=== PATIENT | male | born 1975 | race Caucasian/White ===

== ENCOUNTER 2018-10-15 20:00 | Emergency (ER) | payer MEDICAID ==
[~2018-10-15] VITALS: Ht 170.2 cm; Wt 109.8 kg
[2018-10-15 20:21] VITALS: Ht 170.2 cm; Wt 109.8 kg
[2018-10-15 22:29] VITALS: BP 126/76
== END 2018-10-15 22:29 | disposition home or self-care (01) ==
LOC: ED 20:00
DX: S29.9XXA Unspecified injury of thorax, initial encounter (principal); W22.8XXA Striking against or struck by other objects, initial encounter; Y93.89 Activity, other specified; Y92.89 Other specified places as the place of occurrence of the external cause; Y99.8 Other external cause status
CPT/HCPCS: J1885

== ENCOUNTER 2019-01-31 17:21 | Inpatient (IN) | payer MEDICAID ==
[~2019-01-31] VITALS: Ht 170.2 cm; Wt 108.2 kg
--- NOTE | 2019-01-31 18:23 | NUR ---
WOUND CULTURE COLLECTED AND SENT TO LAB.
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
[2019-01-31 19:29] LABS: BASOPHIL % 0.4 % (0-2); PLATELET COUNT 232 x10^3mcL (130-400); RED CELL DISTRIBUTION WIDTH 12.8 % (11.5-14.5)
[2019-01-31 19:39] LABS: CALCIUM 8.5 mg/dL (8.5-10.1); CARBON DIOXIDE 27.7 mmol/L (21-32); CHLORIDE SERUM 104 mmol/L (98-107); GFR1 > 60 mL/min; GLUCOSE SERUM 142 mg/dL (74-106); POTASSIUM SERUM 4.4 mmol/L (3.5-5.1); SODIUM SERUM 138 mmol/L (136-145)
--- NOTE | 2019-01-31 19:40 | NUR ---
PT TAKEN TO CT
[2019-01-31 19:43] LABS: ALKALINE PHOSPHATASE 87 U/L (46-116); ALT/SGPT 91 U/L (16-63); AST/SGOT 41 U/L (15-37); BILIRUBIN TOTAL 0.3 mg/dL (0.20-1.00); MAGNESIUM 2.1 mg/dL (1.8-2.4); TOTAL PROTEIN, SERUM 7.5 g/dL (6.4-8.2)
[2019-01-31 19:44] LABS: ALBUMIN 3.1 g/dL (3.4-5.0)
--- NOTE | 2019-01-31 20:24 | NUR ---
PT MEDICATED PER ORDER. PT VERBALIZED UNDERSTANDING OF MEDICATION TEACHING. SEE EMAR FOR DETAILS.
--- NOTE | 2019-01-31 21:31 | NUR ---
PT SLEEPING ON GURNEY IN POSITION OF COMFORT. NO S/S OF DISTRESS. RESP E/U. MOTHER AT BEDSIDE. PT EASILY ARROUSEABLE. PT ASKED FOR WATER. WILL CONTINUE TO MONITOR.
--- NOTE | 2019-01-31 21:41 | NUR ---
REPORT TO SMITH TORRES TO [facility].
--- NOTE | 2019-01-31 21:57 | NUR ---
RECEIVED PT FROM ED VIA ROZ, CAME IN DUE TO LLE PAIN AND FOUL ODOR IN THE WOUND. AAOX4. C/O 9/10 POUNDING HEADACHE. ABLE TO FOLLOW COMMANDS. NO SOB NOTED, LUNG SOUNDS CTA. DENIES CHEST PAIN/PRESSURE. DENIES ABDOMINAL PAIN/NAUSEA/VOMITING. STATED THAT HE HAD DIARRHEAL EPISODES 2-3 DAYS BUT HAD FORMED BM TODAY. VOIDS. W/ DRESSINGS ON THE LEFT UPPER ANTERIOR AND POSTERIOR THIGH, CDI. FOUL ODOR NOTED. PT STATED THAT THE DRESSINGS WERE JUST CHANGED IN ED AND REFUSES FOR THE DRESSING TO BE CHANGED FOR ASSESSMENT. LLE ELEVATED W/ A PILLOW. C/O 10/10 SHARP LLE PAIN AND HAS LIMITED ROM ON LLE. IV SITE ON THE RAC GAUGE 20, RECEIVED PT FROM ED W/ NS ONGOING. SIDE RAILS UPX2. CALL LIGHT ON REACH. LRDF=675.7, COOLING MEASURES INITIATED. ENDORSED TO PRIMARY NURSE MELISSA FOR CONTINUITY OF CARE
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
--- NOTE | 2019-01-31 22:30 | NUR ---
TEMP 101.7 DR DAO AWARE , TYLENOL 250MG GIVEN PO .
[2019-01-31 22:31] VITALS: BP 167/89
[2019-01-31 22:34] VITALS: Ht 170.2 cm; Wt 108.2 kg
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
[2019-02-01 00:34] LABS: microscopic required? NO
[2019-02-01 00:51] LABS: urine erythrocyte NEGATIVE (NEGATIVE)
[2019-02-01 01:01] LABS: AMPHETAMINE QUAL UR POSITIVE (See below)
--- NOTE | 2019-02-01 01:51 | NUR ---
PT C/O PAIN 09/27 NORCO GIVEN .
--- NOTE | 2019-02-01 02:56 | NUR ---
PT'S IN BED WITH EYES CLOSED , PIV INTACT INFUSING WELL .
--- NOTE | 2019-02-01 04:53 | NUR ---
I HAVE REVIEWED THE DATA COLLECTION BY TRACTOR OPERATOR (NAME):MELISSA ZAVALA ENTERED ON (DATE/TIME): I CONCUR WITH THE DATA AND ANY EXCEPTIONS OR COMMENTS ARE LISTED BELOW:
[2019-02-01 05:30] VITALS: BP 125/59
--- NOTE | 2019-02-01 06:03 | NUR ---
PT C/O CHU 11/27 MILBANK GIVEN
[2019-02-01 06:12] LABS: BASOPHIL % 0.5 % (0-2); PLATELET COUNT 240 x10^3mcL (130-400); RED CELL DISTRIBUTION WIDTH 12.5 % (11.5-14.5)
[2019-02-01 06:25] LABS: CALCIUM 8.1 mg/dL (8.5-10.1); CARBON DIOXIDE 27.8 mmol/L (21-32); CHLORIDE SERUM 105 mmol/L (98-107); CREATININE SERUM 0.8 mg/dL (0.7-1.3); GFR1 > 60 mL/min; GLUCOSE SERUM 113 mg/dL (74-106); PHOSPHOROUS 3.1 mg/dL (2.5-4.9); POTASSIUM SERUM 4.3 mmol/L (3.5-5.1); SODIUM SERUM 140 mmol/L (136-145)
--- NOTE | 2019-02-01 06:29 | NUR ---
ALL DUE MEDS GIVEN NO REACCTION NOTED, PT'S IN BED WITH EYES CLOSED , DRESSING TO LEFT THIG INTACT , PIV INTACT INFUSING WELL .
--- NOTE | 2019-02-01 07:03 | NUR ---
RECEIVED PT FROM RUBBER PRESS TENDER NURSE. PT RESTING IN BED, AXO4, RESP E/U ON RA. C/O OF HEADACHE AT THIS TIME, WILL CARRY OUT ORDERS PER EMAR, COMFORT MEASURES IMPLEMENTED. IV TO RAC W/ NO SIGNS OF INFILTRATION, IVF INFUSING WELL. DRESSING TO LLE CDI. BED IN LOWEST POSITION AND CALL LIGHT WITHIN REACH. WILL CONTINUE TO MONITOR.
[2019-02-01 07:14] VITALS: BP 156/100
[2019-02-01 08:29] VITALS: BP 114/60
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
--- NOTE | 2019-02-01 11:10 | NUR ---
PT RESTING IN BED, AOX4, RESP E/U ON RA. DENIES HEADACHE BUT REPORTED MILD PAIN TO L LEG AT WOUND SITE, TOLERBALE, NO REQUEST FOR PAIN MEDS AT THIS TIME. DRESSING CDI, COMFORT MEASURES IMPLMENTED. BED IN LOWEST POSITION AND CALL LIGHT WITHIN REACH. WILL CONTINUE TO MONITOR.
--- NOTE | 2019-02-01 13:15 | NUR ---
Discount pharmacy card and list to low cost medical clinics given to patient by Destin Mccray.
[2019-02-01 17:29] VITALS: BP 140/88
--- NOTE | 2019-02-01 17:59 | NUR ---
PT RESTING IN BED, AOX4, RESP E/U ON RA. REPORTS MILD HEADACHE BUT TOLERBALE, NO REQUEST FOR PAIN MEDS AT THIS TIME. DENIES N/V. DRESSING TO L UPPER LEG CDI, DENIES PAIN TO WOUND SITE, EXTREMITY ELEVATED ON PILLOW. BED IN LOWEST POSITION AND CALL LIGHT WITHIN REACH. WILL ENDORSE TO ONCOMING NURSE.
--- NOTE | 2019-02-01 19:43 | NUR ---
AWAKE, ORIENTED TO NAME, PLACE, TIME AND SITUATION. SPEECH CLEAR AND APPROPRIATE. STATED HAVING 10/10 HEADACHE, STATED HAS BEEN HAVING THIS HEADACHE PAST 6 DAYS. BREATHING EVEN AND UNLABORED ON ROOM AIR. STATED ALSO HAVING 10/10 TO LEFT LEG PAIN. DRESSING SOILED. DILAUDID 2MG ADMINISTERED SLOW IVP FOR PAIN. REMOVED DRESSING, NEW DRESSING PER WOUND CARE NOTES APPLIED. PT TOLERATED WELL. IVF OF NS INFUSING AT 100ML/HR.
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
--- NOTE | 2019-02-01 21:10 | NUR ---
EYES CLOSED, BREATHING EVEN AND UNLABORED. RR 18/MIN. NO MOANING OR GRIMACING NOTED.
--- NOTE | 2019-02-01 22:09 | NUR ---
WAS INFORMED BY SHAYLEE VALDES PT SCHEDULED FOR DEBRIDEMENT TOMORROW AT 0730H
--- NOTE | 2019-02-01 22:16 | NUR ---
INFORMED DR. HINKLE PT FOR DEBRIDEMENT OF WOUND IN AM. ORDER RECEIVED TO KEEP PT NPO AFTER MIDNIGHT
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
--- NOTE | 2019-02-01 23:12 | NUR ---
INFORMED PT SURGEON HAS SCHEDULED DEBRIDEMENT OF WOUND IN THE MORNING. INSTRUCTED NOT TO EAT OR DRINK ANYTHING EXCEPT MEDICATIONS AFTER MIDNIGHT.
--- NOTE | 2019-02-02 02:44 | NUR ---
EYES CLOSED, BREATHING EVEN AND UNLABORED ON ROOM AIR. CALL LIGHT WITHIN EASY REACH. LEFT FOOT ELEVATED ON PILLOW. IVF INFUSING WELL.
[2019-02-02 05:27] VITALS: BP 144/68
--- NOTE | 2019-02-02 06:53 | NUR ---
OR TECH HERE TO BRING PT TO OR. SALINE LOCKED PT. IV SITE FREE FROM ERYTHEMA OR SWELLING. PT AWAKE AND ALERT, BREATHING EVEN AND UNLABORED. REPORT GIVEN TO OR NURSE KYLE.
--- NOTE | 2019-02-02 07:15 | NUR ---
REPORT GIVEN TO NURSE JUD
[2019-02-02 09:39] LABS: BASOPHIL % 0.5 % (0-2); PLATELET COUNT 264 x10^3mcL (130-400); RED CELL DISTRIBUTION WIDTH 12.5 % (11.5-14.5)
[2019-02-02 09:53] LABS: CALCIUM 8.3 mg/dL (8.5-10.1); CARBON DIOXIDE 28.1 mmol/L (21-32); CHLORIDE SERUM 100 mmol/L (98-107); CREATININE SERUM 0.9 mg/dL (0.7-1.3); GFR1 > 60 mL/min; GLUCOSE SERUM 140 mg/dL (74-106); MAGNESIUM 1.8 mg/dL (1.8-2.4); PHOSPHOROUS 3.6 mg/dL (2.5-4.9); POTASSIUM SERUM 4.2 mmol/L (3.5-5.1); SODIUM SERUM 134 mmol/L (136-145)
[2019-02-02 09:55] VITALS: BP 110/66
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
--- NOTE | 2019-02-02 13:41 | NUR ---
1. Recommend progressing to full liquid diet. 2. Recommend Ivan BID for wound healing once diet is progressed. Discussed recommendation with Dr. Marcelo.
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
[2019-02-02 17:32] VITALS: BP 110/68
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
[2019-02-02 20:50] VITALS: BP 94/51
--- NOTE | 2019-02-03 00:01 | NUR ---
EYES CLOSED, NO FAICIAL GRIMACING NOTED. RESPIRATION EVEN AND UNLABORED. NO S/S OF ACUTE DISTRESS.
[2019-02-03 04:59] VITALS: BP 125/68
--- NOTE | 2019-02-03 05:36 | NUR ---
CONTINUES ON ATB IVPB FOR MANAGEMENT OF WOUND INFECTION. NO ADVERSE REACTION NOTED. KEPT CLEAN AND DRY. ALL NEEDS ATTENDED.
[2019-02-03 06:28] LABS: CALCIUM 8.5 mg/dL (8.5-10.1); CARBON DIOXIDE 28.3 mmol/L (21-32); CHLORIDE SERUM 104 mmol/L (98-107); CREATININE SERUM 0.8 mg/dL (0.7-1.3); GFR1 > 60 mL/min; GLUCOSE SERUM 128 mg/dL (74-106); POTASSIUM SERUM 4.2 mmol/L (3.5-5.1); SODIUM SERUM 139 mmol/L (136-145)
[2019-02-03 06:45] LABS: MAGNESIUM 2.1 mg/dL (1.8-2.4); PHOSPHOROUS 3.7 mg/dL (2.5-4.9)
[2019-02-03 06:52] LABS: BASOPHIL % 0.4 % (0-2); PLATELET COUNT 295 x10^3mcL (130-400); RED CELL DISTRIBUTION WIDTH 12.3 % (11.5-14.5)
--- NOTE | 2019-02-03 07:16 | NUR ---
RECEIVED REPORT FROM JERRY RN AT BEDSIDE, PT IN BED IN NO ACUTE DISTRESS
--- NOTE | 2019-02-03 07:36 | NUR ---
PT RESTING IN BED, IN NO ACUTE DISTRESS, VERBAL, ABLE TO MAKE NEEDS KNOWN, CALM AND COOPERATIVE, FULL LIQUID DIET THIS AM PER MD ORDER, TOLERATED WELL, NO REDNESS/DRAINAGE, NO FACIAL DROOP/SLURRED SPEECH, DENIED PAIN/CP/PALPITATION, DENIED N/V/D, MEDSURG, RESP EVEN, NO SOB/COUGH, RA, CHEST RISE SYMMETRICALLY, ABD FLAT AND NON-TENDER TO TOUCH, BS ACTIVE X 4, PALP PULSES, CAP REFILL < 3S, SEE SKIN ASSESSMENT, SKIN C/D/W, SURGICAL DRESSING SITE TO (L) UPPER THIGH CDI, IV PATENT AND INFUSING WELL, DRESSING CDI, BEDREST AT THIS TIME, CONTINENT, ALL NEEDS ADDRESSED AT THIS TIME, SAFETY PROTOCOL MAINTAINED, COTNINUE TO MONITOR
[2019-02-03 08:35] VITALS: BP 116/68
--- NOTE | 2019-02-03 09:01 | NUR ---
PT REPORTED PAIN 09/27 TO (L) UPPER THIGH SURGICAL SITE, DENIED TO BE MEDICATED W/ PAIN MED, SAID WILL TRY TO TOLERATE THE PAIN, EDUCATION R/T PAIN, PAIN MED, MONITORING GIVEN TO PT, VERBALLY UNDERSTANDING, STILL REFUSED PAIN MED, NON-PHARMACOLOGICAL INTERVENTION APPLIED, PT REPORTED COMFORTABLE AT THIS TIME AND WILL ASK FOR PAIN MED WHEN PT NEED
--- NOTE | 2019-02-03 10:30 | NUR ---
PT SLEEPING IN BED, IN NO APPARENT PAIN/DISTRESS, IV INFUSING, CONTINUE TO MONITOR
[2019-02-03 10:51] VITALS: BP 116/68
--- NOTE | 2019-02-03 11:36 | NUR ---
PT IN BED, DENIED PAIN/DISCOMFORT AT THIS TIME, IN NO ACUTE DISTRESS, DRESSING CDI, SEEN AND EVALED BY Erika MORENO, WALKED ON HALLWAY W/ PBlaire ASISSTANCE, TOELRATED WELL, PT MADE AWARE THAT PAIN MEDIACTION WILL BE GIVEN WHEN PT READY TO HAVE DRESSING CHANGE AND PT WILL BE EDUCATED R/T DRESSING CHANGE TO WOUND AREA AND INFECTION S/S RECOGNITION, VRBALLY UNDERSTANDING, ALL NEEDS ADDRESSED AT THIS TIME, SAFETY PROTOCOL MAINTAINED, CONTINUE TO MONITOR
--- NOTE | 2019-02-03 11:43 | NUR ---
PT'S MOTHER CALLED AND GOT UPDATED W/ PT'S CURRENT CONDITION, NO FURTHER CONCERNS NEEDED WHEN ASKED
--- NOTE | 2019-02-03 13:18 | NUR ---
PT REPORTED PAIN, /, DULL, REQUESTED FOR PAIN MED AND WOUND CARE, PT MEDICATED PER PRN ORDER VIA EMAR, TOLERATED WELL, EDUCATED R/T MED, ASE AND MONITOR GIVE TO PT, VERBALLY UNDERSTANDING, FAMILY AT BEDSIDE, CONTINUE TO MONITOR
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
--- NOTE | 2019-02-03 13:48 | NUR ---
YOUTH ASSOCIATE MADE AWARE OF [employer] REQUEST AND CONVERSATION W/ PT BY CHARGE NURSE HODAN
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
[2019-02-03 16:31] VITALS: BP 126/85
[2019-02-03 17:18] LABS: BASOPHIL % 0.6 % (0-2); PLATELET COUNT 299 x10^3mcL (130-400); RED CELL DISTRIBUTION WIDTH 12.5 % (11.5-14.5)
--- NOTE | 2019-02-03 19:30 | NUR ---
A/O X4. MED SURG. DENIES ANY CHEST PAIN OR PRESSURE. PULSES ARE PRESENT. LUNGS CLEAR IN ALL FEILDS. ON RA, DENIES ANY SOB. EQUAL CHEST RISE AND FALL. NO SIGN OF RESP DISTRESS. BOWEL SOUNDS PRESENT x4. DENIES ANY ABD PAIN OR DISTRESS. ABD SOFT AND ROUND. VOIDS FREELY. R LEG LIMITED ROM. DRESSING ON RLE IS CLEAN AND INTACT. NO ACTIVE DRAINGE NOTED. PT COMAPLAIN OF 5/10 PAIN ON RLE. NO RADIATING AND DULL. WILL MEDICATE PER EMAR. IV ON RAC IS INTACT AND PATENT. BED IS AT LOWEST SETTING. CALL LIGHT WITHIN REACH. WILL CONTINUE TO MONTIOR.
[2019-02-03 22:41] VITALS: BP 138/69
--- NOTE | 2019-02-04 00:59 | NUR ---
PT IS RESTING IN BED WITH BOTH EYES CLOSED. BREATHING EVEN AND UNLABORED. NO SIGN OF DISTRESS NOTED. BED IS AT LOWEST SETTING. CALL LIGHT WITHIN REACH. WILL CONTINUE TO MONTIOR.
--- NOTE | 2019-02-04 06:25 | NUR ---
PT IS RESTING IN BED WITH BOTH EYES CLOSED. BREATHING EVEN AND UNLABORED. NO SIGN OF DISTRESS NOTED. DRESSING IS INTACT AND CLEAN. NO ACUTE EVENT OCCURED AT NIGHT. BED IS AT LOWEST SETTING. CALL LIGHT WITHIN REACH. WILL ENDORSE TO AM NURSE.
[2019-02-04 06:42] LABS: BASOPHIL % 0.5 % (0-2); PLATELET COUNT 314 x10^3mcL (130-400); RED CELL DISTRIBUTION WIDTH 12.2 % (11.5-14.5)
[2019-02-04 06:48] VITALS: BP 124/71
[2019-02-04 06:58] LABS: CALCIUM 8.7 mg/dL (8.5-10.1); CARBON DIOXIDE 27.1 mmol/L (21-32); CHLORIDE SERUM 98 mmol/L (98-107); CREATININE SERUM 0.9 mg/dL (0.7-1.3); GFR1 > 60 mL/min; GLUCOSE SERUM 105 mg/dL (74-106); MAGNESIUM 2.1 mg/dL (1.8-2.4); PHOSPHOROUS 4.1 mg/dL (2.5-4.9); POTASSIUM SERUM 4.1 mmol/L (3.5-5.1); SODIUM SERUM 135 mmol/L (136-145)
--- NOTE | 2019-02-04 07:18 | NUR ---
RECEIVED PT FROM PUMPER BREWERY NURSE. PT IN BED SLEEPING, AROUSABLE, RESP E/U ON RA. NO SIGNS OF ACUTE DISTRESS NOTED. SALINE LOCKED TO RAC W/ NO ERYTHEMA OR EDEMA. DRESSING TO LLE CDI, SCD IN PLACE TO RLE. BED IN LOWEST POSITION AND CALL LIGHT WITHIN REACH. WILL CONTINUE TO MONITOR.
[2019-02-04 08:21] VITALS: BP 126/78
--- NOTE | 2019-02-04 11:41 | NUR ---
PT IN BED SLEEPING, AROUSABLE, RESP E/U ON RA. NO SIGNS OF ACUTE DISTRESS NOTED AT THIS TIME. BED IN LOWEST POSITION AND CALL LIGHT WITHIN REACH. WILL CONTINUE TO MONITOR.
--- NOTE | 2019-02-04 16:06 | NUR ---
PT MEDICATED ORDERED FOR HEADACHE/LLE PAIN TO WOUND SITE RATED 10/10 AND PRIOR TO WOUND CARE. INSTRUCTIONS GIVEN TO PT WOUND CARE WAS DONE BUT PT SEEMED UNABLE TO FOLLOW DUE TO PAIN DURING PROCEDURE. WILL REINFORCE TEACHING NEEDED. DRESSING TO LLE CDI, EXTREMITY ELEVATED ON POILLOW. BED IN LOWEST POSITION AND CALL LIGHT WITHIN REACH. WILL CONTINUE TO MONITOR.
[2019-02-04 16:09] VITALS: BP 132/72
--- NOTE | 2019-02-04 18:43 | NUR ---
PT IN BED SLEEPING, AROUSABLE, RESP E/U ON RA. NO SIGNS OF ACUTE DISTRESS NOTED. DRESSING TO LLE CDI. BED IN LOWEST POSITION AND CALL LIGHT WITHIN REACH. WILL ENDORSE TO ONCOMING NURSE.
[2019-02-04 19:41] VITALS: BP 126/63
--- NOTE | 2019-02-04 20:34 | NUR ---
PT CURRENTLY RESTING IN BED, NO ACUTE DISTRESS. A/O X4. NO TELE, MED/SURG. DENIES CHEST PAIN. PULSES PALPABLE IN ALL EXTREMITIES, NO EDEMA NOTED. LUNG SOUNDS CTA BILATERALLY, DENIES SOB. BOWEL SOUNDS ACTIVE, LAST BM 02/04/19. VOIDING WELL. LLE WEAKNESS DUE TO WOUND. LEFT THIGH ANTERIOR AND POSTERIOR WOUND, DRESSING CDI. DENIES PAIN AT THIS TIME. IV PATENT AND INTACT. BED IN LOWEST POSITION, SIDE RAILS UP X2, CALL LIGHT WITHIN REACH. WILL CONTINUE TO MONITOR.
--- NOTE | 2019-02-04 23:48 | NUR ---
PT CURRENTLY RESTING IN BED, C/O LLE PAIN 12/28, DR HINKLE INFORMED, MEDICATED PER EMAR. WILL CONTINUE TO MONITOR.
[2019-02-05 05:08] VITALS: BP 121/80
--- NOTE | 2019-02-05 06:10 | NUR ---
PT SLEPT PERIODICALLY THROUGHOUT NIGHT, NO ACUTE DISTRESS. ALL NEEDS MET AND ATTENDED TO. NO SIGNIFICANT CHANGES. IV PATENT AND INTACT. MEDICATED PAIN PER EMAR. BED IN LOWEST POSITION, SIDE RAILS UP X2, CALL LIGHT WITHIN REACH. WILL ENDORSE CARE TO ONCOMING NURSE.
[2019-02-05 06:42] LABS: BASOPHIL % 0.5 % (0-2); PLATELET COUNT 346 x10^3mcL (130-400); RED CELL DISTRIBUTION WIDTH 12.4 % (11.5-14.5)
[2019-02-05 07:22] LABS: CALCIUM 8.9 mg/dL (8.5-10.1); CARBON DIOXIDE 25.7 mmol/L (21-32); CHLORIDE SERUM 101 mmol/L (98-107); CREATININE SERUM 0.8 mg/dL (0.7-1.3); GFR1 > 60 mL/min; GLUCOSE SERUM 104 mg/dL (74-106); MAGNESIUM 2.4 mg/dL (1.8-2.4); PHOSPHOROUS 3.6 mg/dL (2.5-4.9); POTASSIUM SERUM 4.1 mmol/L (3.5-5.1); SODIUM SERUM 136 mmol/L (136-145)
--- NOTE | 2019-02-05 07:38 | NUR ---
RECEIVED IN NO RESP. DISTRESS. AWAKE, ALERT AND ORIENTED. VS WNL. NO C/O PAIN OR DISCOMFORT AT THIS TIME. DRESSING TO LT THIGH DRY AND INTACT. CALL LIGHT WITHIN REACH. WILL CONTINUE WITH PLAN OF CARE.
[2019-02-05 08:37] VITALS: BP 106/65
--- NOTE | 2019-02-05 13:42 | NUR ---
C/O PAIN TO LT THIGH 01/27, MEDICATED WITH NORCO PO PER ORDER.
--- NOTE | 2019-02-05 15:43 | NUR ---
RESTING IN BED, NO DISTRESS NOTED. NO C/O PAIN AT THIS TIME.
--- NOTE | 2019-02-05 16:33 | NUR ---
DRESSING TO LT THIGH CHANGED. SITE CLEANED WITH NS AND PATTED DRY. PACKED WITH THERAHONEY PATCH, COVERED WITH DRY DRESSING AND WRAP WITH KERLIX. PT TOLERATED WELL.
[2019-02-05 16:56] VITALS: BP 124/73
--- NOTE | 2019-02-05 18:57 | NUR ---
REMAINS IN NO DISTRESS, AWAKE AND ALERT. MEDICATED FOR PAIN TO LT THIGH WITH GOOD RELIEF. RESTING AT THIS TIME. NO C/O PAIN OR DISCOMFORT. NO CHANGES IN VS. IVF INFUSING TO KVO AND NEW SITE CLEAR. CALL LIGHT WITHIN REACH. WILL BE ENDORSED TO INCOMING SHIFT.
--- NOTE | 2019-02-05 19:59 | NUR ---
PT CURRENTLY RESTING IN BED, NO ACUTE DISTRESS. A/O X4. NO TELE, MED/SURG. DENIES CHEST PAIN. PULSES PALPABLE IN ALL EXTREMITIES, NO EDEMA NOTED. LUNG SOUNDS CTA BILATERALLY, DENIES SOB. BOWEL SOUNDS ACTIVE, LAST BM 02/04/19. VOIDING WELL. LLE WEAKNESS. WOUND TO LEFT POSTERIOR/ANTERIOR THIGH, DRESSING CDI. DENIES PAIN AT THIS TIME. IV PATENT AND INTACT. BED IN LOWEST POSITION, SIDE RAILS UP X2, CALL LIGHT WITHIN REACH. WILL CONTINUE TO MONITOR.
[2019-02-05 20:51] VITALS: BP 108/72
[2019-02-06 05:29] VITALS: BP 136/69
[2019-02-06 06:23] LABS: BASOPHIL % 0.5 % (0-2); PLATELET COUNT 342 x10^3mcL (130-400); RED CELL DISTRIBUTION WIDTH 12.4 % (11.5-14.5)
--- NOTE | 2019-02-06 07:40 | NUR ---
RECEIVED ASLEEP BUT AROUSABLE. NO RESP. DISTRESS NOTED. NO C/O PAIN OR DISCOMFORT. VS WNL. IVF INFUSING TO KVO AND SITE CLEAR. CALL LIGHT WITHIN REACH. WILL CONTINUE WITH PLAN OF CARE.
[2019-02-06 08:17] VITALS: BP 122/66
[2019-02-06] MEDS ORDERED: APAP/HYDROCODON1 T13 PO (09:35)
[2019-02-06] MEDS ORDERED: LEVAQUIN750 MG PO (09:37)
[2019-02-06 12:02] VITALS: BP 116/68
[2019-02-06 12:03] LABS: CALCIUM 8.8 mg/dL (8.5-10.1); CARBON DIOXIDE 26.7 mmol/L (21-32); CHLORIDE SERUM 101 mmol/L (98-107); CREATININE SERUM 0.9 mg/dL (0.7-1.3); GFR1 > 60 mL/min; GLUCOSE SERUM 105 mg/dL (74-106); POTASSIUM SERUM 4.5 mmol/L (3.5-5.1); SODIUM SERUM 136 mmol/L (136-145)
--- NOTE | 2019-02-06 13:18 | NUR ---
DRESSING CHANGE TO LT THIGH PERFOMED PER ORDER. PT C/O PAIN 12/28 AFTER WOUND CARE. MEDICATED WITH NORCO.
--- NOTE | 2019-02-06 13:50 | NUR ---
PT AND SISTER EDUCATED ON HOME WOUND CARE. INSTRUCTED TO CLEAN THE WOUND WITH WOUND CLEANSER, PAT DRY AND PACK WITH THERAHONEY DERSSING SHEET, COVER WITH ISLAND DRESSING DAILY AND NEEDED IF SOILED. PT/SISTER VERBALIZED UNDERSTANDING. WOUND CARE SUPPLIES GIVEN.
--- NOTE | 2019-02-06 14:14 | NUR ---
PT DC'D HOME IN NO RESP. DISTRESS. AWAKE AND ALERT. NO C/O PAIN OR DISCOMFORT AT THIS TIME. NO CHANGES IN VS. HL REMOVED AND SITE CLEAR. DC INSTRUCTIONS REVIEWED WITH PT AND SISTER. RT TO PHARMACY. WOUND CARE SUPPLIES PROVIDED PER ORDER. DRESSING TO LT HIP DRY, CLEAN AND INTACT. PERSONAL BELONGINGS TAKEN HOME.
== END 2019-02-06 14:13 | disposition home or self-care (01) | DRG 720 ==
LOC: ED 17:21 → MU 20:17
PROVIDERS: Emergency Medicine; Internal Medicine; Surgery; ADMIT Family Medicine
PROC: 0JBM0ZZ Excision of Left Upper Leg Subcutaneous Tissue and Fascia, Open Approach (ICD-10-PCS; principal; 2019-02-02 07:30)
DX: A41.9 Sepsis, unspecified organism (principal); E44.1 Mild protein-calorie malnutrition; L03.116 Cellulitis of left lower limb; S71.1 Open wound of thigh; F15.10 Other stimulant abuse, uncomplicated; F12.10 Cannabis abuse, uncomplicated; R74.0 Nonspecific elevation of levels of transaminase and lactic acid dehydrogenase [LDH]; F17.210 Nicotine dependence, cigarettes, uncomplicated; Z68.37 Body mass index [BMI] 37.0-37.9, adult; W34.00XS Accidental discharge from unspecified firearms or gun, sequela; S81.841A Puncture wound with foreign body, right lower leg, initial encounter; E87.1 Hypo-osmolality and hyponatremia
CPT/HCPCS: 97116-GP; G0378; J1170; J2175; J2250; J2270; J2405; J2543; J2704; J3010; J3370; J3490; J7030; J7050; J7120; Q0092